=== PATIENT | female | born 1985 | race Caucasian/White ===

== ENCOUNTER 2020-09-13 11:37 | Inpatient (IN) | payer MEDICAID ==
[~2020-09-13] VITALS: Ht 160 cm; Wt 68.0 kg
[2020-09-13 11:53] VITALS: Ht 160 cm; Wt 68.0 kg
--- NOTE | 2020-09-13 12:09 | NUR ---
LAB AT BEDSIDE FOR BLOOD DRAW
[2020-09-13 12:19] LABS: BASOPHIL % 0.6 % (0-2); PLATELET COUNT 174 x10^3mcL (130-400)
--- NOTE | 2020-09-13 12:27 | NUR ---
US AT BEDSIDE
[2020-09-13 12:33] LABS: ALBUMIN 3.4 g/dL (3.4-5.0); BILIRUBIN TOTAL 0.6 mg/dL (0.20-1.00); CALCIUM 10.3 mg/dL (8.5-10.1); CARBON DIOXIDE 22.3 mmol/L (21-32); TOTAL PROTEIN, SERUM 7.9 g/dL (6.4-8.2)
[2020-09-13 12:49] LABS: RED CELL DISTRIBUTION WIDTH 16.2 % (11.5-14.5)
--- NOTE | 2020-09-13 12:50 | NUR ---
PT TAKEN TO X-RAY
[2020-09-13 12:59] LABS: CREATININE SERUM 11.5 mg/dL (0.6-1.0)
--- NOTE | 2020-09-13 13:06 | NUR ---
PT RETURNED FROM X-RAY
--- NOTE | 2020-09-13 13:22 | NUR ---
REPORT GIVEN TO GIULIANA MCALLISTER
--- NOTE | 2020-09-13 13:55 | NUR ---
PT RETURNED FROM CT SCAN
--- NOTE | 2020-09-13 14:20 | NUR ---
MARLI ADMIT ORDERS FROM RESIDENT DR. NANCE
--- NOTE | 2020-09-13 14:49 | NUR ---
REPORT GIVEN TO ANAYELI MCALLISTER IN OR
[2020-09-13 15:18] LABS: CHOLESTEROL/HDL RATIO 4.4; MAGNESIUM 2.9 mg/dL (1.8-2.4); PHOSPHOROUS 5.7 mg/dL (2.5-4.9)
[2020-09-13 15:25] LABS: FREE T4 0.98 ng/dL (0.76-1.46); T4(THYROXINE) 6.3 ug/dL (4.7-13.3)
[2020-09-13 15:39] LABS: T3 TOTAL 1.04 ng/mL
--- NOTE | 2020-09-13 15:44 | NUR ---
ANAYELI MCALLISTER FROM OR AT BEDSIDE
--- NOTE | 2020-09-13 16:14 | NUR ---
WITNESSED CONSENT FOR SURGERY WITH ANAYELI MCALLISTER FROM OR
--- NOTE | 2020-09-13 16:14 | NUR ---
PT BEING TAKEN TO OR
[2020-09-13 21:46] VITALS: BP 138/83
--- NOTE | 2020-09-13 21:58 | NUR ---
RECEIVED PT FROM OR, PT ADMIT FOR LEFT HIP FX, PT IS A/O X4, VERBAL RESPONSIVE. LUNG SOUND DIM PAN BASE, BUT DENY ANY SOB OR COUGH, PO2 98% IN ROOM AIR. DENY ANY CHEST PAIN OR DISCOMFORT, BOWEL SOUND PRESENT ALL 4 QUADRANTS, NO DISTENTION, NO TENDER. PEDAL PULSE PRESENT BOTH FEET, NO EDEMA, IV AT RIGHT AC, NO LEAKING, NO INFILTRATION. S/P PAN HIP SX. FIRST DRESSING, UNABLE TO REMOVE TO TAKE PICTURE. PT DENY ANY PAIN AT THIS MOMENT, AV SHUNT AT LEFT UPPER ARM, PT STATE LAST DIALYSIS WAS LAST SAT. ALL ADLS ASSIST, ALL NEED MET, CALL LIGHT IN REACH, WILL CONTINUE TO MONITOR.
--- NOTE | 2020-09-14 00:03 | NUR ---
@0000 SPOKE WITH THE PHARMACY REGARDING DROP DOSE CEPHAZOLIN ORDER SCHED FOR 09/13/20 2200 PER PHARMACY THE CREATININE LEVEL OF PT IS LOW AND THEY RESCHEDULE THE ANCE 500 MG DAILY TO START TOMORROW.
--- NOTE | 2020-09-14 01:15 | NUR ---
0000 SPOKE WITH PHARMACIST FOR DROP ANCEF DOSE; PER PHARMACY THEY RESCHEDULE THE ANCEF DOSE TO DAILY FOR THE PT HAS ELEVATED CREATININE LEVEL.
[2020-09-14 06:03] VITALS: BP 117/81
--- NOTE | 2020-09-14 06:49 | NUR ---
0600 NO CALLS THE WHOLE SHIFT; DENIES ANY DISCOMFORT; FOR ENDORSEMENT.
[2020-09-14 07:08] LABS: BASOPHIL % 0.1 % (0-2); PLATELET COUNT 163 x10^3mcL (130-400)
[2020-09-14 07:42] LABS: CALCIUM 9.5 mg/dL (8.5-10.1); CARBON DIOXIDE 19.7 mmol/L (21-32); MAGNESIUM 2.8 mg/dL (1.8-2.4)
[2020-09-14 07:49] LABS: POTASSIUM SERUM 7.1 mmol/L (3.5-5.1)
[2020-09-14 07:50] LABS: RED CELL DISTRIBUTION WIDTH 15.9 % (11.5-14.5)
--- NOTE | 2020-09-14 08:41 | NUR ---
CRITICAL LABS K+ 7.1 BUN [address] TO INFORM
[2020-09-14 09:27] VITALS: BP 110/73
--- NOTE | 2020-09-14 11:57 | NUR ---
0800 NOTES- PATIENT SITTING IN BED. STATES VERY MINIMAL TOLERABLE PAIN, 2/10 NO PAIN MED NEEDED OR REQUESTED AT THIS TIME. VITAL SIGNS STABLE. GAVE CALCIUM GLUCONATE, DEXTROSE 50%, AND HUMULIN REG FOR HYPERKALEMIA PER DR ORDERS. PATIENT WILL BE DIALYSED TODAY. ALL NEEDS MET FOR NOW. WILL CONTINUE MONITORING PATIENT.
[2020-09-14 12:37] VITALS: BP 130/76
--- NOTE | 2020-09-14 14:59 | NUR ---
PATIENT IS GETTING DIALYSIS RIGHT NOW. PATIENTS VITALS ARE STABLE. NO COMPLAINTS OF RESP DISTRESS OR OTHER DISCOMFORT/PAIN.
--- NOTE | 2020-09-14 15:19 | NUR ---
DIALYSIS COMPLETE- 2.5L OUT
--- NOTE | 2020-09-14 16:53 | NUR ---
PATIENT WAS HAVING PAIN ON HIPS BILATERALLY WHEN REPOSITIONED 10/10. GAVE PRN PAIN MED. PATIENTS PAIN DECREASED TO A TOLERABLE LEVEL 30 MIN LATER.
--- NOTE | 2020-09-14 18:14 | NUR ---
P.T. NOTES P.T. EVAL COMPLETED; REFER TO EVAL FOR DETAILS; WILL BENEFIT W/ OHT IN BED FOR SAFE BED MOB & RE-POSITIONING.
--- NOTE | 2020-09-14 18:53 | NUR ---
PATIENT EATING DINNER IN BED, NO PAIN AT THIS MOMENT. NO S/S OF RESP DISTRESS OR OTHER DISCOMFORT. WILL GIVE REPORT TO NIGHTSHIT.
--- NOTE | 2020-09-14 20:00 | NUR ---
PT A/A/O X3. DENIES DIZZINESS AND HEADACHE. BREATH SOUNDS DIMINISHED. BREATHING EVEN AND UNLABORED ON ROOM AIR, SPO2 97%. DENIES CHEST PAIN AND PRESSURE. BOWEL SOUNDS ACTIVE. NO C/O N/V AND ABD PAIN. SURGICAL WOUND WITH DRESSING NOTED ON PAN SIDES OF THE THIGH C/D/I. NO C/O PAIN ON AFFECTED AREA THUS FAR. AV SHUNT NOTED ON THE LEFT UPPER ARM WITH POSITIVE BRUIT AND THRILL. IV SALINE LOCK INTACT ON THE RAC. MADE PT COMFORTABLE. PLACED CALL LIGHT WITH IN REACH. WILL CONTINUE TO MONITOR.
[2020-09-14 21:20] VITALS: BP 127/74
[2020-09-15 05:49] VITALS: BP 159/103
--- NOTE | 2020-09-15 06:42 | NUR ---
PT RESTING WITH EYES CLOSED. EASILY AROUSABLE WITH VERBAL STIMULI. NO C/O PAIN THUS FAR. DRESSING C/D/I. MADE PT COMFORTABLE. WILL ENDORSE TO THE AM NURSE ACCORDINGLY.
[2020-09-15 07:34] LABS: BASOPHIL % 0.3 % (0-2); PLATELET COUNT 138 x10^3mcL (130-400)
[2020-09-15 07:56] LABS: CALCIUM 9.8 mg/dL (8.5-10.1); CARBON DIOXIDE 28.4 mmol/L (21-32); MAGNESIUM 2.3 mg/dL (1.8-2.4); PHOSPHOROUS 7.6 mg/dL (2.5-4.9); POTASSIUM SERUM 5.5 mmol/L (3.5-5.1)
[2020-09-15 09:11] VITALS: BP 164/102
--- NOTE | 2020-09-15 09:19 | NUR ---
PATIENT HIGH FOWLERS IN BED. BP 164/102, PATIENT IN PAIN 8/10. GAVE PATEINT HOWARD PRN MED. WILL REASSES. ALL MORNING MEDS TAKEN. NO OTHER COMPLAINTS AT THIS TIME.
[2020-09-15 13:19] VITALS: BP 164/109
--- NOTE | 2020-09-15 13:24 | NUR ---
JIMENEZ EATING LUNCH IN BED.BP 164/109 (127) DR AWARE. DR ORDERED PATIENT TO BE STARTED ON HOME BP MEDICATION REGIMEN TOMORROW. PATEINT HAS NOT HAD BM SINCE 09/13 DAY OF SX. NO OTHER COMPLAINTS OR PAIN. PAIN IS AT A TOLERABLE LEVEL RIGHT NOW. WILL CONT MONITORING.
--- NOTE | 2020-09-15 13:50 | NUR ---
[facility](N.P. ATTENDING) MADE AWARE THAT PCR IS NEGATIVE, NEW ORDER RECEIVED TO REPEAT PCR AND SWAB PT ALSO FOR INFLUENZA A&B. TYRESE MCALLISTER ASSIGNED TO THIS PT MADE AWARE OF ABOVE.
--- NOTE | 2020-09-15 18:35 | NUR ---
PATIENTS INFLUENZA AND COVID PCR TEST WAS COMPLETED AGAIN PER ORDER. PATIENT BP REMAINS HIGH EVEN AFTER REQUESTED AND GIVEN BP MEDICATION. WILL ENDORSE TO [facility] TO FOLLOW UP. PATIENT STATES FEELING WELL. SHE TRIED TO MOVE AROUND IN BED TO SHIFT HER WEIGHT. NO PAIN MED HAS BEEN GIVEN SINCE LAST DOSE 08.
--- NOTE | 2020-09-15 20:00 | NUR ---
RECEIVED PATIENT IN BED, ROOM AIR NO DISTRESS NOTED. S/P ORIF OF PAN HIP WITH ISLAND DRESSING ON , CLEAN AND INTACT, LEFT ARM AV SHUNT WITH GOOD BRUIT/THRILL PRESENT. NO C/O PAIN AT THIS TIME.
[2020-09-15 21:00] VITALS: BP 162/109
[2020-09-15 23:00] VITALS: BP 156/83
--- NOTE | 2020-09-15 23:13 | NUR ---
BP IS ALLI 167/109 AT 2100, SPOKE TO RESIDENT OVER THE PHONE , LABETELOL 10 MG IVP GIVEN AT 2239, BP RECHECKED 155/93 AT 2300 , WILL CONTINUE TO MONITOR.
--- NOTE | 2020-09-16 04:30 | NUR ---
ASSISTED BRIDGE OPERATOR TO PUT BEDPAN FOR PATIENT , BM X1 WITH YELLOWISH STOOL, NORCO 1 TAB PO GIVEN FOR BOTH LEG INCISION PAIN 5/10. DRESSING TO BOTH HIP INTACT, CLEAN AND DRY. NEEDS BEING MET.
[2020-09-16 05:47] VITALS: BP 152/89
[2020-09-16 08:58] VITALS: BP 159/110
[2020-09-16 10:02] LABS: CALCIUM 9.8 mg/dL (8.5-10.1); CARBON DIOXIDE 24.6 mmol/L (21-32)
[2020-09-16 10:06] LABS: CREATININE SERUM 11.7 mg/dL (0.6-1.0); POTASSIUM SERUM 5.6 mmol/L (3.5-5.1)
[2020-09-16 12:38] VITALS: BP 157/103
--- NOTE | 2020-09-16 13:15 | NUR ---
0800 MORNING NOTES PATIENT SITTING UP IN BED. PATIENT A0X4 SAMMARINESE SPEAKING, PER JUAN ANTONIO RN PATIENTS BP REMAINED HIGH. PATIENTS BP HAS BEEN IN THE 150S. MORNING AMLODAPINE WAS GIVEN BUT STILL MAINTAINED. PATIENT HAS BEEN HAVING PAIN BUT DECLINED PAIN MEDS. WILL CONTINUE MONITORING PATIENT.
--- NOTE | 2020-09-16 13:17 | NUR ---
PATIENTS PAIN 8/10 BECAUSE SHE STATED SHE WAS TRYING TO MOVE AROUND IN HER BED, REQUESTED FOR PAIN MED. DILAUDID WAS GIVEN PRN. WILL REASSES PATIENT. NO OTHER COMPLAINTS RIGHT NOW.
[2020-09-16 16:36] VITALS: BP 149/105
--- NOTE | 2020-09-16 18:35 | NUR ---
PATIENT RECEIVED HEMODIALYSIS TODAY. PATIENT RESTING IN BED. ATE 100% DINNER. PATIENT IV WAS FIXED, IT IS INTACT AND FLUSHING. NO COMPLAINTS OF PAIN OR DISCOMFORT AT THIS TIME.
--- NOTE | 2020-09-16 18:42 | NUR ---
HD COMPLETED, 1999 OUT
[2020-09-16 22:38] VITALS: BP 159/95
--- NOTE | 2020-09-17 01:34 | NUR ---
09/16/201999 RECEIVED PATIENT IN BED, AWAKE,ALERT,AND ORIENTED,FAROESE SPEAKING.ON ROOM AIR .LUNGS SOUND CLEAR UPON AUSCULTATION.S/P BILAT.HIP ORIF.NO S/S OF INFECTION TO SURGICAL SITE.LT.FA AV SHUNT WITH GOOD BRUIT AND THRILL.DENIES PAIN AND DISCOMFORT AT THIS TIME.CALL LIGHT WITHIN REACH.
--- NOTE | 2020-09-17 06:06 | NUR ---
PATIENT SLEPT WELL AT NIGHT.DENIES PAIN AND DISCOMFORT.CALL LIGHT WITHIN REACH.
[2020-09-17 06:52] VITALS: BP 172/107
[2020-09-17 07:57] LABS: CALCIUM 9.8 mg/dL (8.5-10.1)
[2020-09-17 08:32] VITALS: BP 174/110
[2020-09-17 12:07] VITALS: BP 177/11; BP 177/111
--- NOTE | 2020-09-17 13:20 | NUR ---
REC'D REPORT FROM RADHA MCALLISTER. PT ON RA. MED SURG. NO COMPLAINTS AT THIS TIME. WILL CONTINUE TO MONITOR.
--- NOTE | 2020-09-17 16:21 | NUR ---
CALLED [facility] AND NOTIFED OF ELEVATED BP 170'S/110'S. REQUESTED PRN HTN MEDS.
[2020-09-17 17:02] VITALS: BP 173/110
--- NOTE | 2020-09-17 18:00 | NUR ---
PT RESTING IN BED. C/O MILD PAN HIP PAIN. TYLENOL GIVEN PER ORDER. HYDRALIZINE PRN GIVEN FOR SBP > 160.
[2020-09-17 21:10] VITALS: BP 170/107
--- NOTE | 2020-09-18 02:41 | NUR ---
09/17/20 AT 1999.RECEIVED PATIENT IN BED.AWAKE,ALERT AND ORIENTED.SKIN WARM AND DRY TO TOUCH.RESPIRATION EVEN AND UNLABORED,NO RESPIRATORY DISTRESS.S/P BILATERAL HIP SURGERY WITH DRESSING CLEAN AND INTACT.INFORMED PATIENT TO CALL FOR ASSISTANCE AND VERBALIZED UNDERSTANDING.CALL LIGHT WITHIN REACH.
--- NOTE | 2020-09-18 05:32 | NUR ---
PATIENT SLEPT WELL AT NIGHT.DENIES ANY PAIN AND DISCOMFORT.BILATERAL HIP SURGERY WITH DRESSING CLEAN AND INTACT.CALL LIGHT WITHIN REACH.IN NO ACUTE DISTRESS.
[2020-09-18 06:05] VITALS: BP 161/103
--- NOTE | 2020-09-18 07:25 | NUR ---
RECEIVED PT FROM LIDDER. ASSESSED AND DOCUMENTED. STABLE. DENIES ANY PAIN THIS TIME. STABLE. SAFTEY PRECAUTIONS ARE IN PLACE. WILL MONITOR.
[2020-09-18 08:28] LABS: BASOPHIL % 0.6 % (0-2); PLATELET COUNT 131 x10^3mcL (130-400)
[2020-09-18 08:49] LABS: RED CELL DISTRIBUTION WIDTH 15.4 % (11.5-14.5)
--- NOTE | 2020-09-18 08:55 | NUR ---
HD NURSE CAME AND STARTED HD. PT IS STABLE.
[2020-09-18 08:58] LABS: CALCIUM 10.3 mg/dL (8.5-10.1); CARBON DIOXIDE 23.4 mmol/L (21-32); POTASSIUM SERUM 5.5 mmol/L (3.5-5.1)
[2020-09-18 09:02] LABS: CREATININE SERUM 9.6 mg/dL (0.6-1.0)
[2020-09-18 09:35] VITALS: BP 143/97
--- NOTE | 2020-09-18 10:00 | NUR ---
LATE ENTRY: AWARE ABOUT PT K=5.5, BUN=57, CREAT=9.6. PT IS HAVING HD NOW.
--- NOTE | 2020-09-18 10:08 | NUR ---
P.T. NOTES HOLD P.T. TX DUE TO DIALYSIS.
--- NOTE | 2020-09-18 12:40 | NUR ---
HD FINISHED WITH 3000ML OUT. V/S STABLE. NO SOB NOTED. DENIES ANY PAIN.
[2020-09-18 13:02] VITALS: BP 131/95; BP 81/32
--- NOTE | 2020-09-18 16:00 | NUR ---
PT RESTING IN BED COMFORTABLY. DENIES ANY PAIN. STABLE.
[2020-09-18 17:17] VITALS: BP 144/103
--- NOTE | 2020-09-18 19:10 | NUR ---
PT RESTING IN BED COMFORTABLY. DENIES ANY PAIN. GAVE REPORT TO INTERIOR DESIGN CONSULTANT NURSE.
[2020-09-18 21:53] VITALS: BP 138/94
--- NOTE | 2020-09-19 01:10 | NUR ---
Patient asleep, arouses easily to verbal and tactile stimuli. Denies pain, denies SOB. Call light within easy reach.
--- NOTE | 2020-09-19 03:52 | NUR ---
NO CHANGE OF CONDITION. DENIES SOB BUT DOES C/O PAIN TO BILATERAL LOWER EXTREMITIES, SHARP, THROBBING, AND INTERMITTENT. MEDICATED ORDERED. V/S STABLE. ALL NEEDS MET, CALL LIGHT IN EASY REACH.
--- NOTE | 2020-09-19 06:18 | NUR ---
PATIENT RESTING COMFORTABLY. VOICES RELEIF AFTER PAIN MEDICATION ADMINISTERED. NO AYAZ, CALL LIGHT IN EASY REACH.
[2020-09-19 06:22] VITALS: BP 138/88
--- NOTE | 2020-09-19 07:20 | NUR ---
RECEIVED PT FROM HAZARDOUS WASTE MANAGEMENT SPECIALIST. SLEEPING THIS TIME. AROUSABLE AND VERBALLY RESPONDING. A/O X4. DENIES ANY PAIN THIS TIME. STABLE. SAFTEY PRECAUTIONS ARE IN PLACE. WILL MONITOR.
[2020-09-19 09:04] VITALS: BP 145/103
--- NOTE | 2020-09-19 11:00 | NUR ---
PAN HIP DRESSING CHANGED, CLEANED WITH NS. MCKAY INTACT, NO BLEEDING NOTED. APPLIED ISLAND DRESSING. DENIES ANY PAIN. NO DISTRESS NOTED. PT IS STABLE.
[2020-09-19 13:39] VITALS: BP 144/97
--- NOTE | 2020-09-19 15:06 | NUR ---
Initial Nutrition Assessment JefferyA Amirah Roberts - 35/F Dx: Left Hip Fracture PMHx: HTN, ESRD PSHx: AV shunt in Left arm Labs: (09/19) H/H 11.8/35L, NA 135L, K5.5H, BUN 57.0H, CR 9.6H, BG 70L, CA 10.3H (09/15) Phos 7.6H, CA 10.3H Meds: Nephro-kiko, Lopressor, Norvasc, Renagel, Dilaudid, Ancef, Lovenox, Procrit, Apresoline, Tylenol Diet: Renal PO intake since admission: 92% PO average x 5 meals Ht: 160.02cm/ 5'3 Wt: 68.03 kg/150# BMI: 26.6 Bed scale: unknown IBW: 115# %IBW: 130% UBW: 54-56kg dry wt per patient Age: 35 Food Allergies: NKFA Skin condition: intact/ bilateral hip fractures I&Os: (09/19) 1050/3000= -1950mls, (09/18) 570/200= 370mls Ry: 17 Edema: none Last BM: 09/16 Per H&P: A 35 yo female with hx of ESRD and HTN presents to the hospital with complaints of left lower extremity pain that started 15 days ago after she did an hour of intense leg workout. Pt states that the pain started shortly and has gotten progressively worse. She reports that the pain starts in her left hip and radiates down to her thigh, which is aggravated when she bends her knee or puts weight on his leg. Pt states that she has to use a walker to get around but today had trouble getting up from her bed. RD Note (09/19): Patient was not seen d/t positive COVID test, had Bilateral nondisplaced hip fractures s/p closed reduction and pinning s/p fall after a workout. Spoke over phone, very kind middle aged Palauan speaking patient has been Post Op 6 days from hip surgery. Here for PT and recover. She is eating optimally, but states she eats normally at home not really following renal diet. Labs reviewed, elevated Calcium, Phosphorous, and Potassium levels. 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 She has also been noncompliant with Renagel phos binders. Pt will follow up at dialysis or ask for Renagel refill. Otherwise no c/o for n/v/d, some constipation bit still has small BMs. On appropriate diet, will monitor. Problem with: N/V/D/C: none per pt Problems with: Chewing: Swallowing: none per pt Current appetite: very good Recent wt change: none, maybe some wt gain %wt change: none Vitamin/Supplement use: Nephro-kiko, VIT D Special diet at home: Regular, not following renal restrictions Physical activity: bilateral hip fractures, no standing at the moment Nutrition education given (specify specific nutrition education and handout given): no handouts, over phone education on Renal diet and medication compliance. Food-drug interactions? Education given? Yes over phone. 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 Estimated Nutritional Needs Based on Dry/Target (55kg) body weight (ESRD) Energy: 1650 - 1925 kcal/day (30-35 kcal/kg) ESRD, dialysis Protein: 66 - 83 g/day (1.2-1.5 g/kg) HD, hip fractures Fluid: 1000mL/day (HD) Nutrition Diagnosis: Altered nutrition related labs r/t Renal Failure aeb bilateral hip fractures, Phos 7.6H, CA 10.3H, not following renal diet or taking phosphorus binders Intervention 1. Continue with a Renal Diet to assist with hyperphosphatemia. Monitor/Evaluate Goal: PO intake at least 75% of estimated needs Monitor: PO intake, Renal/ metabolic Labs, GI function, Appetite F/U in 3-5 days as moderate risk 09/22-
--- NOTE | 2020-09-19 15:07 | NUR ---
1. Continue with a Renal Diet to assist with hyperphosphatemia.
--- NOTE | 2020-09-19 16:00 | NUR ---
PT RESTING IN BED COMFORTABLY. DENIES ANY PAIN. STABLE. GAVE REPORT TO BUSINESS ASST NURSE.
--- NOTE | 2020-09-19 16:00 | NUR ---
PT RESTING IN BED COMFORTABLY. DENIES ANY PAIN, STABLE.
[2020-09-19 17:28] VITALS: BP 136/84
--- NOTE | 2020-09-19 19:10 | NUR ---
PT RESTING IN BED COMFORTABLY. DENIES ANY PAIN. STABLE. GAVE REPORT TO SECURITY PROFESSIONAL NURSE.
--- NOTE | 2020-09-19 19:10 | NUR ---
RECEIVED PT FROM DAY SHIFT RN. PT A&OX 4. PT APPEARS WEAK AND TIRED. DENIES CHEST PAIN OR DISCOMFORT AT THIS TIME. LUNGS SOUNDS CLEAR BILATERAL, ON ROOM AIR, DENIES SOB. PT RECENTLY HAD BILATERAL HIP PROCEDURES, DRESSING INTACT AND DRY. IV SITE INTACT AND PATENT. NO ACUTE CHANGES NOTED AT THIS TIME. INSTRUCTED PT TO USE CALL LGIHT AND PHONE, CALL LIGHT WITHIN RECH. BED IN LOWER POSITION. WILL CONTINUE TO MONITOR PT.
--- NOTE | 2020-09-19 21:10 | NUR ---
PT C/O BODY PAIN IN SCALE OF 6/10, MEDICATION TYLENOL 650MG PO GIVEN. WILL REASSESS AND MONITOR PT.
[2020-09-19 22:04] VITALS: BP 136/99
--- NOTE | 2020-09-19 22:10 | NUR ---
RECHECKED ON PT. PT RESTING IN BED. NO DISTRESS NOTED. RESPIRATORY EVEN, NO SIDE OF ACUTE CHANGES NOTED. CALL LIGHT WITHIN REACH. WILL CONTINUE TO MONITOR AND CARE PT.
--- NOTE | 2020-09-20 01:00 | NUR ---
INTO CHECKED ON PT. PT RESTING IN BED. NO ACUTE CHANGES OR DISTRESS NOTED. CALL LIGHT WITHIN REACH, SAFETY MEASURES ARE IN PLACE. WILL CONTINUE TO MONITOR PT.
[2020-09-20 05:51] VITALS: BP 137/89
--- NOTE | 2020-09-20 06:56 | NUR ---
PT RESTED WELL DURING SHIFT. NO ACUTE CHANGES NOTED. ALL NEEDS AND QUESTIONS ADDRESSED. SAFETY MEASURES IN PLACE. WILL ENDORSE CARE TO ONCOMING RN.
[2020-09-20 07:53] LABS: CALCIUM 10.4 mg/dL (8.5-10.1); CARBON DIOXIDE 21.9 mmol/L (21-32); POTASSIUM SERUM 5.1 mmol/L (3.5-5.1)
[2020-09-20 07:57] LABS: CREATININE SERUM 9.8 mg/dL (0.6-1.0)
[2020-09-20 09:21] VITALS: BP 143/86
[2020-09-20] MEDS ORDERED: NOR10 PO (10:07)
[2020-09-20] MEDS ORDERED: METOPROLOL TART25 M1 PO (10:07)
[2020-09-20] MEDS ORDERED: NEP PO (10:08)
[2020-09-20] MEDS ORDERED: NORCO1 TA2 PO (10:09)
[2020-09-20] MEDS ORDERED: REN800 PO (10:10)
[2020-09-20 12:30] VITALS: BP 145/97
--- NOTE | 2020-09-20 16:30 | NUR ---
DAY SHIFT Patient received awake and alert, able to make needs known. No complaints of pain during morning assessnment but c/o pain x1 recently. Administered tylenol x1. Tolerating well so far. HD nurse at bedside about to do HD - Will continue to monitor.
[2020-09-20 17:19] VITALS: BP 141/88
--- NOTE | 2020-09-20 19:30 | NUR ---
RECEIVED PT LYING IN BED, AAOX4. DENIES HEADACHE/DIZZINESS. ABLE TO FOLLOW COMMANDS. NO SOB NOTED, O2 SAT=95% RA. DENIES CHEST PAIN/PRESSURE. DENIES ABDOMINAL DISCOMFORT. BOWEL SOUNDS ACTIVE. PT IS S/P HD, W/ DRESSING ON THE LUE, CDI. W/ BILATERAL HIP DRESSINGS, PT REFUSED FOR PICTURES TO BE TAKEN FOR DISCHARGE. PT RECEIVED DISCHARGE PAPERWORKS, WAITING FOR PT'S TO PICK HER UP. PER PT'S , SHE WILL BE BRINGING PT'S CLOTHES AND WHEELCHAIR AND HE WILL BE HERE WITHIN 10 MINUTES. CALL LIGHT ON REACH. SIDE RAILS UPX2.
--- NOTE | 2020-09-20 20:09 | NUR ---
IV ON THE LEFT HAND REMOVED, CATHETER INTACT, NO BLEEDING NOTED. YV=489/85
--- NOTE | 2020-09-20 20:40 | NUR ---
WHEELED THE PATIENT TO THE LOBBY. PT ASSISTED TO THE 'S CAR W/ THE ASSISTANCE OF ARY MCKEON. ALL BELONGINGS SENT TO THE PT. PT DISCHARGED
== END 2020-09-20 20:40 | disposition home or self-care (01) | DRG 308 ==
LOC: ED 11:37 → MU 13:33
PROVIDERS: Emergency Medicine; Internal Medicine; Orthopaedic Surgery; ADMIT Family Medicine; ATTEND Family Medicine
PROC: 0QS704Z Reposition Left Upper Femur with Internal Fixation Device, Open Approach (ICD-10-PCS; 2020-09-13)
PROC: 0QS604Z Reposition Right Upper Femur with Internal Fixation Device, Open Approach (ICD-10-PCS; principal; 2020-09-13 15:30)
PROC: 5A1D70Z Performance of Urinary Filtration, Intermittent, Less than 6 Hours Per Day (ICD-10-PCS; 2020-09-14)
PROC: 5A1D70Z Performance of Urinary Filtration, Intermittent, Less than 6 Hours Per Day (ICD-10-PCS; 2020-09-16)
PROC: 5A1D70Z Performance of Urinary Filtration, Intermittent, Less than 6 Hours Per Day (ICD-10-PCS; 2020-09-18)
PROC: 5A1D70Z Performance of Urinary Filtration, Intermittent, Less than 6 Hours Per Day (ICD-10-PCS; 2020-09-20)
DX: S72.035A Nondisplaced midcervical fracture of left femur, initial encounter for closed fracture (principal); U07.1 COVID-19; I12.0 Hypertensive chronic kidney disease with stage 5 chronic kidney disease or end stage renal disease; E87.5 Hyperkalemia; S72.034A Nondisplaced midcervical fracture of right femur, initial encounter for closed fracture; N18.6 End stage renal disease; X58.XXXA Exposure to other specified factors, initial encounter; Y93.89 Activity, other specified; Y92.89 Other specified places as the place of occurrence of the external cause; Z88.0 Allergy status to penicillin; E21.3 Hyperparathyroidism, unspecified; Z99.2 Dependence on renal dialysis
CPT/HCPCS: 82962; 83880; 84439; 87804; 97110-GP; 97112-GP; 97116-GP; 97530-GP; G0378; J0610; J0690; J0885-EC; J1170; J1650; J2250; J2270; J2274; J2405; J2704; J3010; J3490; J7030; J7050; J7120; U0003

== ENCOUNTER 2020-10-07 11:40 | Emergency (ER) | payer MEDICAID ==
[~2020-10-07] VITALS: Ht 142.2 cm; Wt 68.0 kg
[~2020-10-07 11:40] MED LIST: METOPROLOL TART25 M1 PO; NEP PO; NOR10 PO; NORCO1 TA2 PO; REN800 PO
[2020-10-07 11:43] VITALS: BP 147/96; Ht 142.2 cm; Wt 68.0 kg
== END 2020-10-07 15:31 | disposition home or self-care (01) ==
LOC: ED 11:40
DX: Z48.01 Encounter for change or removal of surgical wound dressing (principal)

== ENCOUNTER → 2020-11-19 | Outpatient (CLI) | payer MEDICAID | END | disposition home or self-care (01) | LOC: RD 17:20 | PROVIDERS: ATTEND Orthopaedic Surgery | DX: M25.552 Pain in left hip (principal); M25.551 Pain in right hip ==